=== PATIENT | female | born 1995 | race Two or more races ===

== ENCOUNTER 2019-04-02 22:33 | Emergency (ER) | payer SELFPAY ==
[~2019-04-02] VITALS: Ht 167.6 cm; Wt 68.0 kg
[2019-04-03] MEDS ORDERED: KETOROLAC 60MG/2ML VIAL IM ONE (01:45)
[2019-04-03] MEDS ORDERED: DIAZEPAM 5 MG/ML 2ML CPJ IM ONE (01:45)
[2019-04-03 04:48] VITALS: BP 121/80
== END 2019-04-03 04:49 | disposition home or self-care (01) ==
LOC: ER 22:33
DX: M54.5 Low back pain (principal); G89.29 Other chronic pain; Z87.828 Personal history of other (healed) physical injury and trauma
CPT/HCPCS: 96372; 99283; J1885; J3360; Z7610